=== PATIENT | male | born 1955 | race Caucasian/White ===

== ENCOUNTER 2025-02-12 16:26 | Emergency (ER) | payer OTHER, MEDICAID ==
[~2025-02-12] VITALS: Ht 170.2 cm; Wt 72.0 kg
[2025-02-12 16:46] VITALS: PULSE 98; RESP 20; O2SAT 98
[2025-02-12] MEDS: METHYLPREDNISOLONE SOD SUCC 125MG/2ML (ACT-O-VIAL) IV STA (16:55)
[2025-02-12 16:56] VITALS: TEMP 36.9
[2025-02-12 17:05] LABS: EOSINOPHILS % 2.8 % (0.0-5.0); HEMATOCRIT. 26.8 % (42.0-52.0); HEMOGLOBIN. 8.6 g/dL (14.0-18.0); LYMPHOCYTES % 7.8 % (20.0-50.0); MEAN CORPUSCULAR HEMOGLOBIN 29.9 pg (28.0-32.0); MEAN CORPUSCULAR HGB CONC 32.2 g/dL (31.0-37.0); MEAN CORPUSCULAR VOLUME 93.1 fL (80.0-94.0); MEAN PLATELET VOLUME 6.9 fl (7.4-10.4); MONOCYTES % 7.8 % (2.0-8.0); NEUTROPHILS % 80.6 % (40.0-76.0); PLATELET 196 x1000/uL (130-400); RED BLOOD CELL COUNT 2.88 mill/uL (4.7-6.1); RED CELL DISTRIBUTION WIDTH 18.5 % (11.6-14.6); WHITE BLOOD COUNT 6.1 x1000/uL (4.5-11.0)
[2025-02-12] MEDS: IPRATROPIUM BROMIDE (0.02%) 0.5MG/2.5ML NEB HHN STA (17:10)
[2025-02-12] MEDS: ALBUTEROL (0.083%) 2.5MG/3ML NEB HHN SCH (17:10)
[2025-02-12 17:13] LABS: CHLORIDE 85 mEq/L (98-107); POTASSIUM 5.3 mEq/L (3.5-5.1); SODIUM 123 mEq/L (136-145)
[2025-02-12 17:14] LABS: CALCIUM 9.1 mg/dL (8.7-10.4); CARBON DIOXIDE 30 mEq/L (21-32)
[2025-02-12 17:19] LABS: CREATININE 1.5 mg/dL (0.6-1.3); GLUCOSE 98 mg/dL (70-105); UREA NITROGEN BLOOD 34 mg/dL (9-23)
[2025-02-12 17:20] LABS: TROPONIN I HIGH SENSITIVITY 9 ng/L (3.0-53)
[2025-02-12 17:28] LABS: INR 1.1; PARTIAL THROMBOPLASTIN TIME 31.9 sec (23.4-31.0); PROTHROMBIN TIME 11.9 sec (9.6-11.0)
[2025-02-12 17:57] LABS: BG CARBOXYHEMOGLOBIN 1.1 % (0.5-1.5); BG DEOXYHEMOGLOBIN 0.3 % (0.0-5.0); BG FRACTION INSPIRED OXYGEN 50; BG HCO3 ACT 25.2 mmol/L (21.0-28.0); BG METHEMOGLOBIN 0.3 % (0.5-1.5); BG OXYGEN SATURATION 99.7 % (94.0-98.0); BG OXYHEMOGLOBIN 98.3 % (94.0-98.0); BG PCO2 38.2 mmHg (35.0-48.0); BG PH 7.437 (7.350-7.450); BG SAMPLE SITE RIGHT BRACHIAL; BG TOTAL HEMOGLOBIN 9.1 g/dL (13.5-17.5); BG VENT MODE HHN TX
[2025-02-12] MEDS ORDERED: CALCIUM GLUCONATE 1,000 MG in DEXT 5% WATER 100 ML IV ONE (18:00)
[2025-02-12] MEDS: INSULIN REGULAR (HUMULIN R) 1000UNITS/10ML VIAL IV ONE (18:16)
[2025-02-12] MEDS: CALCIUM GLUCONATE 1GM PREMIX 50 ML IV NR (18:22)
[2025-02-12] MEDS: DEXTROSE 50% WATER 50ML SYRINGE IV ONE (18:22)
[2025-02-12] MEDS: FUROSEMIDE 40MG/4ML VIAL IVP ONE (19:17)
[2025-02-12 20:25] VITALS: BP 109/84; PULSE 78; RESP 14; O2SAT 100
== END 2025-02-12 21:11 | disposition short-term general hospital (02) ==
LOC: ER 16:26 → EDBD 16:26 → ER 21:11
DX: J44.0 Chronic obstructive pulmonary disease with (acute) lower respiratory infection (principal); J44.1 Chronic obstructive pulmonary disease with (acute) exacerbation; J96.01 Acute respiratory failure with hypoxia; I50.9 Heart failure, unspecified; E87.5 Hyperkalemia; N17.9 Acute kidney failure, unspecified; J94.8 Other specified pleural conditions; Z85.72 Personal history of non-Hodgkin lymphomas; Z88.5 Allergy status to narcotic agent
CPT/HCPCS: 80048; 82962; 83880; 83605; 85025; 85610; 85730; 87040; 84484; 36415; 71045; 82805; 82375; 93005; 94644; 96365; 96375; 99291; 36600; J0610; J1940; J1815; J2919; 94070; 94640; 94664; J7060